=== PATIENT | female | born 1985 | race Caucasian/White ===

== ENCOUNTER 2018-01-06 09:16 | Outpatient (CLI) | payer MEDICARE, OTHER ==
--- NOTE | 2018-01-06 10:34 | GI Initial Consult Note ---
History of Present Illness General Date patient seen: Jan 06, 2018 Time patient seen: 10:25 Referring physician: DOLLY Reason for Consultation: N/V Present Illness HPI 33 year old female patient referred by Dr. Ryder for persistent vomiting after PO intake x 1 months. In addition, the patient presents with severe epigastric pain after ingesting proteins and thus has been on a strict vegetarian diet. She states she has lost about 10 lbs the past month due to her vomiting. Originally was 305 lbs. Took Zantac with no relief. Occasional diarrhea at times. Denies any recent abx use. No history of endoscopy / colonoscopy. No signs of abuse or neglect. Patient is not fall risk. Home Meds Reported Medications Sumatriptan Succinate (SUMATRIPTAN SUCCINATE) 100 Mg Tablet, 100 MG PO, TAB 01/06/18 Alprazolam* (XANAX*) 1 Mg Tablet, 1 TAB ORAL, TAB 0 Refills 01/06/18 Topiramate* (TOPAMAX*) 25 Mg Tablet, 50 MG ORAL DAILY, #30 TAB 0 Refills 01/06/18 Ondansetron* (ZOFRAN*) 4 Mg Tablet, 4 MG ORAL Q6H PRN, TAB 01/06/18 Famotidine (FAMOTIDINE) 20 Mg Tablet, 20 MG ORAL DAILY, #30 TAB 0 Refills 01/06/18 Duloxetine Hcl* (CYMBALTA*) 60 Mg Capsule.dr, 60 MG ORAL DAILY, CAP 01/06/18 Ibuprofen* (MOTRIN*) 600 Mg Tablet, 600 MG ORAL FOUR TIMES A DAY, #30 TAB 0 Refills 01/06/18 Meloxicam* (MELOXICAM*) 15 Mg Tablet, 15 MG PO DAILY, TAB 01/06/18 Canagliflozin (INVOKANA) 300 Mg Tablet, 300 MG PO, TAB 01/06/18 Med list reviewed/reconciled: Yes Allergies: Coded Allergies: Aspirin (Unverified Allergy, Severe, 01/06/18) Betadine (Unverified Allergy, Severe, 01/06/18) Codeine (Unverified Allergy, Severe, 01/06/18) Iodine (Unverified Allergy, Severe, 01/06/18) Patient History History Provided By: Patient PMH Narrative Depression DM s/p fall with knee brace Past Surgical History: Cholecystectomy 2012 Gastric sleeve 2014 Foot surgery Spine surgery 2017 Pertinent Family History: none Social History: Denies: smoking, alcohol use, drug use, other Review of Systems All Other Systems: negative except mentioned in HPI Physical Exam T 98.2 BP 108/60 P 65 98 RA WT 166.1 lbs (originally 305 lbs) Sp02 EP Interpretation: reviewed, normal General Appearance: well appearing, no apparent distress, alert Head: normocephalic EENT: PERRL/EOMI, normal ENT inspection Neck: supple Respiratory: normal breath sounds, no respiratory distress Cardiovascular: normal rate Gastrointestinal: normal inspection, non tender, soft, normal bowel sounds, non -distended Rectal: deferred Genitourinary: no CVA tenderness Musculoskeletal: normal inspection, back normal Neurologic: normal inspection, alert, oriented x3, responsive Psychiatric: normal inspection, judgement/insight normal, memory normal Skin: normal inspection, normal color, no rash, warm/dry, palpation normal, well hydrated Lymphatic: normal inspection, no adenopathy GI: Plan Problems: (1) Depression (2) Diabetes (3) Status post fall (4) Diarrhea (5) GERD (gastroesophageal reflux disease) (6) N&V (nausea and vomiting) Plan dc melaxicam EGD scheduled 01/12/18. - NPO @ [place] day prior to procedure. Seen with Dr. Temple. Thank you for this patient referral. Liz Corona N.P. Jan 06, 2018 10:34
[2018-01-06] MEDS ORDERED: SUMATRIPTAN SU100 MG PO (10:38)
[2018-01-06] MEDS ORDERED: INVOKANA300 MG PO (10:38)
[2018-01-06] MEDS ORDERED: IBUPROFEN600 MG ORAL (10:38)
[2018-01-06] MEDS ORDERED: ZOFRAN4 M3 ORAL (10:38)
[2018-01-06] MEDS ORDERED: MELOXICAM15 MG PO (10:38)
[2018-01-06] MEDS ORDERED: XANAX1 MG ORAL (10:38)
[2018-01-06] MEDS ORDERED: FAMOTIDINE20 MG ORAL (10:38)
[2018-01-06] MEDS ORDERED: CYMBALTA60 MG ORAL (10:38)
[2018-01-06] MEDS ORDERED: TOPIRAMATE25 MG ORAL (10:38)
[2018-01-06 14:57] VITALS: BP 108/60
== END 2018-01-06 09:50 | disposition home or self-care (01) ==
LOC: PAN 09:16
DX: R11.10 Vomiting, unspecified (principal); R10.13 Epigastric pain; Z88.6 Allergy status to analgesic agent; F32.9 Major depressive disorder, single episode, unspecified; E11.9 Type 2 diabetes mellitus without complications; Z90.49 Acquired absence of other specified parts of digestive tract; Z98.84 Bariatric surgery status; K21.9 Gastro-esophageal reflux disease without esophagitis; R19.7 Diarrhea, unspecified
CPT/HCPCS: 99201

== ENCOUNTER 2018-01-12 07:19 | Day surgery (SDC) | payer MEDICARE, OTHER ==
[2018-01-12] VITALS (8 sets, daily range): BP systolic 118–142; BP diastolic 65–74
[~2018-01-12] VITALS: Ht 152.4 cm; Wt 73.5 kg
[~2018-01-12 07:19] MED LIST: CYMBALTA60 MG ORAL; FAMOTIDINE20 MG ORAL; IBUPROFEN600 MG ORAL; INVOKANA300 MG PO; MELOXICAM15 MG PO; SUMATRIPTAN SU100 MG PO; TOPIRAMATE25 MG ORAL; XANAX1 MG ORAL; ZOFRAN4 M3 ORAL
[2018-01-12] MEDS ORDERED: LYRICA50 MG ORAL (08:13)
[2018-01-12] MEDS ORDERED: BUPROPION XL300 M1 PO (08:13)
--- NOTE | 2018-01-12 08:54 | Anethesia Preoperative Eval ---
Anesthesia Pre-op PMH/ROS General Date of Evaluation: Jan 12, 2018 Time of Evaluation: 09:46 Anesthesiologist: Trey ASA Score: ASA 3 Mallampati Score Class I : Soft palate, uvula, fauces, pillars visible Class II: Soft palate, uvula, fauces visible Class III: Soft palate, base of uvula visible Class IV: Only hard plate visible Mallampati Classification: Class II Surgeon: Windy Diagnosis: Abd Pain Surgical Procedure: EGD Anesthesia History: none Family History: no anesthesia problems Allergies: Coded Allergies: IODINE (Verified Allergy, Severe, hives, blisters, 01/12/18) POVIDONE-IODINE (Unverified Allergy, Severe, hives, blisters, 01/12/18) SOAP (Verified Allergy, Severe, hives, blisters, 01/12/18) ASPIRIN (Verified Allergy, Intermediate, hives, 01/12/18) CODEINE (Verified Allergy, Intermediate, hives, 01/12/18) Medications: see eMAR Past Medical History Cardiovascular: Reports: HTN Gastrointestinal/Genitourinary: Reports: GERD Neurologic/Psychiatric: Reports: depression/anxiety Endocrine: Reports: DM PSxH Narrative: Spione SX X7, Cholecystectomy, Gastric Sleeve Anesthesia Pre-op Phys. Exam Physician Exam Last Vital Signs Date Time Temp Pulse Resp B/P (MAP) Pulse Ox O2 Delivery O2 Flow Rate FiO2 01/12/18 08:06 98.2 54 18 118/66 99 Room Air 98.2 Constitutional: NAD Neurologic: CN 2-12 intact Cardiovascular: RRR Respiratory: CTA Gastrointestinal: S/NT/ND Airway Exam Mallampati Classification ASA 3 Mallampati Score: Class II MO: full ROM: full Teeth: intact Anesthesia Pre-op A/P Labs Urine Test Test 01/12/18 07:30 Urine HCG, Qualitative Negative (NEGATIVE) Risk Assessment & Plan Assessment: ASA 3 Plan: GA Status Change Before Surgery: Perry Butler MD Jan 12, 2018 08:54
--- NOTE | 2018-01-12 08:57 | Short Stay Surgery H&P ---
History of Present Illness History of Present Illness Chief Complaint see recent consult note HPI Abe Lin is a 33 year old female who was admitted on for GERD Patient History Allergies: Coded Allergies: IODINE (Verified Allergy, Severe, hives, blisters, 01/12/18) POVIDONE-IODINE (Unverified Allergy, Severe, hives, blisters, 01/12/18) SOAP (Verified Allergy, Severe, hives, blisters, 01/12/18) ASPIRIN (Verified Allergy, Intermediate, hives, 01/12/18) CODEINE (Verified Allergy, Intermediate, hives, 01/12/18) Medication History Scheduled Bupropion HCl (Bupropion Xl), 300 MG PO DAILY, (Reported) Duloxetine Hcl* (Cymbalta*), 60 MG ORAL DAILY, (Reported) Famotidine (Famotidine), 20 MG ORAL DAILY, (Reported) Pregabalin (Lyrica), 50 MG ORAL BID, (Reported) Sumatriptan Succinate (Sumatriptan Succinate), 100 MG PO NEEDED, (Reported) Topiramate* (Topamax*), 50 MG ORAL BID, (Reported) Scheduled PRN Ondansetron* (Zofran*), 4 MG ORAL Q6H PRN, (Reported) Miscellaneous Medications Alprazolam* (Xanax*), 1 TAB ORAL, (Reported) Canagliflozin (Invokana), 300 MG PO, (Reported) Discontinued Medications Ibuprofen* (Motrin*), 600 MG ORAL FOUR TIMES A DAY, (Reported) Discontinued Reason: Pt stopped taking med Meloxicam* (Meloxicam*), 15 MG PO DAILY, (Reported) Discontinued Reason: Pt stopped taking med Physical Exam Vital Signs Last Vital Signs Date Time Temp Pulse Resp B/P (MAP) Pulse Ox O2 Delivery O2 Flow Rate FiO2 01/12/18 08:06 98.2 54 18 118/66 99 Room Air 98.2 Labs Laboratory Tests Test 01/12/18 07:30 Urine HCG, Qualitative Negative (NEGATIVE) Plan Attestation Are the patient's medical conditions optimized for surgery? RAVINDRA GUSMAN Jan 12, 2018 08:57
--- NOTE | 2018-01-12 08:57 | Pre-Procedure Note/Attestation ---
Pre-Procedure Note/Attestation Complete Prior to Procedure Planned Procedure: not applicable Procedure Narrative: egd Indications for Procedure Pre-Operative Diagnosis: gerd Attestation I attest that I discussed the nature of the procedure; its benefits; risks and complications; and alternatives (and the risks and benefits of such alternatives ), prior to the procedure, with the patient (or the patient's legal inside technical sales representative). I attest that, if there was a reasonable possibility of needing a blood transfusion, the patient (or the patient's legal inside technical sales representative) was given the [facility] of Health Services standardized written summary, pursuant to the [place] Blood Safety Act ([place] Health and Safety Code # 1645, as amended). I attest that I re-evaluated the patient just prior to the surgery and that there has been no change in the patient's H&P, except as documented below: RAVINDRA GUSMAN Jan 12, 2018 08:57
[2018-01-12] MEDS ORDERED: Propofol 200mg/20ml IV ONE (09:00)
[2018-01-12] MEDS ORDERED: LR 1000ml ONE (09:00)
[2018-01-12] MEDS ORDERED: Lidocaine 1% MPF 10mg/ml 5ml ONE (09:00)
[2018-01-12] MEDS ORDERED: Midazolam 2mg/2ml Inj ONE (09:00)
[2018-01-12] MEDS ORDERED: LR 1000ml 1,000 ML IVLG SCH (09:14)
[2018-01-12] MEDS ORDERED: Midazolam 2mg/2ml Inj IVP PRN (09:15)
[2018-01-12] MEDS ORDERED: DiphenhydrAMINE 50mg/ml Inj IVP PRN (09:15)
[2018-01-12] MEDS ORDERED: Atropine Inj 1mg/10ml Syr IV PRN (09:15)
[2018-01-12] MEDS ORDERED: LORazepam Inj 2mg/ml 1ml IV PRN (09:15)
[2018-01-12] MEDS ORDERED: Labetalol 5mg/ml 20ml vial IV PRN (09:15)
[2018-01-12] MEDS ORDERED: fentaNYL 100 mcg/2 mL IV PRN (09:15)
--- NOTE | 2018-01-12 09:20 | Immediate Post-Op Evaluation ---
Immediate Post-Op Evalulation Immediate Post-Op Evalulation Procedure: EGD Date of Evaluation: Jan 12, 2018 Time of Evaluation: 09:47 IV Fluids: 600 LR Blood Products: 0 Estimated Blood Loss: 2 Urinary Output: 0 Blood Pressure Systolic: 142 Blood Pressure Diastolic: 74 Pulse Rate: 61 Respiratory Rate: 16 O2 Sat by Pulse Oximetry: 100 Temperature (Fahrenheit): 97.4 Pain Score (1-10): 2 Nausea: No Vomiting: No Complications 0 Patient Status: awake, reacts, patent, none Hydration Status: adequate Perry Yang MD Jan 12, 2018 09:20
--- NOTE | 2018-01-12 09:20 | 48 Hour Post Anesthesia Eval ---
Post Anesthesia Evaluation Procedure: EGD Date of Evaluation: Jan 12, 2018 Time of Evaluation: 09:47 Blood Pressure Systolic: 143 0: 76 Pulse Rate: 62 Respiratory Rate: 18 Temperature (Fahrenheit): 98.3 O2 Sat by Pulse Oximetry: 100 Airway: patent Nausea: No Vomiting: No Pain Intensity: 2 Hydration Status: adequate Cardiopulmonary Status: Stable Mental Status/LOC: patient returned to baseline Follow-up Care/Observations: 0 Post-Anesthesia Complications: 0 Follow-up care needed: ready to discharge Perry Yang MD Jan 12, 2018 09:20
--- NOTE | 2018-01-12 17:00 | Procedure Note ---
DATE OF PROCEDURE: 01/12/2018 SURGEON: Tanner Temple M.D. REFERRING PHYSICIAN: Mauricio Ryder M.D. PROCEDURE: Upper endoscopy with biopsy. ANESTHESIOLOGIST: Brijesh Daly . INSTRUMENT: Olympus adult flexible upper endoscope. INDICATION: Chronic GERD. The procedure, risks, benefits, and possible consequences, including hemorrhage, aspiration, perforation and infection, and alternative treatments, were explained to the patient/legal guardian by Dr. Tanner Temple and the patient/legal guardian understood and accepted these risks. DESCRIPTION OF PROCEDURE: After informed consent was obtained and the patient was adequately sedated, the Olympus upper endoscope was advanced from mouth into the second portion of the duodenum and retroflexion was performed in the stomach. The patient had prior history of gastric sleeve surgery, but at this time, almost the sleeve is relatively open. The patient had evidence of distal esophageal ring with ulcerative esophagitis, status post biopsy. Just below the GE junction, there was an inflammatory-looking area, which was biopsied and gastric pouch. The patient had evidence of hiatal hernia. In the stomach, there was diffuse gastritis. Random biopsy from antrum was obtained to rule out H. pylori infection. The patient tolerated the procedure well without any complication. SUMMARY OF FINDINGS: 1. Ulcerative esophagitis. 2. Distal esophageal ring. 3. Hiatal hernia. 4. Prior history of gastric sleeve surgery. 5. Gastritis with biopsy. RECOMMENDATIONS: 1. Follow up biopsy results. 2. We will recommend starting the patient on PPI daily. I want to thank Dr. Ryder for this kind referral. Tanner Temple M.D. DR: ZACHARY JOB#: [id number] CC: Mauricio Ryder M.D.; Fax#: [phone]
--- NOTE | 2018-01-12 18:47 | Cardiology Report ---
APPROVED REPORT EKG Measurement Heart [id number] MI [id number] Sinus bradycardia Otherwise normal ECG
== END 2018-01-12 10:45 | disposition home or self-care (01) ==
LOC: GAS 07:19
DX: K22.10 Ulcer of esophagus without bleeding (principal); K21.9 Gastro-esophageal reflux disease without esophagitis; K44.9 Diaphragmatic hernia without obstruction or gangrene; K22.2 Esophageal obstruction; Z98.84 Bariatric surgery status; K29.70 Gastritis, unspecified, without bleeding; R00.1 Bradycardia, unspecified; I10 Essential (primary) hypertension; F32.9 Major depressive disorder, single episode, unspecified; F41.9 Anxiety disorder, unspecified; E11.9 Type 2 diabetes mellitus without complications; Z90.49 Acquired absence of other specified parts of digestive tract; Z88.6 Allergy status to analgesic agent; Z88.8 Allergy status to other drugs, medicaments and biological substances
CPT/HCPCS: 81025; 82962; 93005; 94003; 94150; J2250

== ENCOUNTER 2018-03-10 09:28 | Outpatient (CLI) | payer MEDICARE, OTHER ==
[~2018-03-10 09:28] MED LIST changes: +BUPROPION XL300 M1 PO; +LYRICA50 MG ORAL
--- NOTE | 2018-03-10 10:02 | GI Progress Note ---
Assessment/Plan Problems: (1) Ulcerative esophagitis ICD Codes: K22.10 - Ulcer of esophagus without bleeding SNOMED: 190252571 (2) H. pylori infection ICD Codes: A04.8 - Other specified bacterial intestinal infections SNOMED: 883434193 (3) Hiatal hernia ICD Codes: K44.9 - Diaphragmatic hernia without obstruction or gangrene SNOMED: 14797076 Status: stable Status Narrative Seen with Dr. Temple. Assessment/Plan SUMMARY OF FINDINGS reviewed with patient: 1. Ulcerative esophagitis. 2. Distal esophageal ring. 3. Hiatal hernia. 4. Prior history of gastric sleeve surgery. 5. Gastritis with biopsy. RECOMMENDATIONS: 1. Follow up biopsy results. >> positive for H. Pylori - Amoxicillin 1g BID - Biaxin 500mb BID - Omeprazole 40mg x 2 weeks followed by Omeprazole 40mg PO daily x 6 weeks RTC x 3 month for repeat Breath Test 2. CT AP, labs ordered >> CBC, CMP, amylase/lipase RTC after labs/imaging studies The patient was seen and examined at bedside and all new and available data was reviewed in the patients chart. I agree with the above findings, impression and plan. (Patient seen earlier today. Signature stamp does not reflect patient encounter time.). - Tanner Temple MD Subjective Subjective weight loss abdominal pain painful swallowing Objective T 98.1 BP 124/68 P 74 99 RA General Appearance: WD/WN, no apparent distress, alert Cardiovascular: normal rate Respiratory/Chest: normal breath sounds, no respiratory distress Abdominal Exam: normal bowel sounds, non tender, soft Extremities: normal range of motion, non-tender Frantz Corona NP March 10, 2018 10:02
[2018-03-10 14:20] VITALS: BP 124/68
== END 2018-03-10 10:10 | disposition home or self-care (01) ==
LOC: PAN 09:28
DX: K22.10 Ulcer of esophagus without bleeding (principal); A04.8 Other specified bacterial intestinal infections; K44.9 Diaphragmatic hernia without obstruction or gangrene; Z98.84 Bariatric surgery status; K29.70 Gastritis, unspecified, without bleeding
CPT/HCPCS: 99212

== ENCOUNTER 2018-03-10 10:20 | Outpatient (CLI) | payer MEDICARE, OTHER ==
[2018-03-10 11:37] LABS: ALANINE AMINOTRANSFERASE 15 U/L (12-78); ALBUMIN 3.9 G/DL (3.4-5.0); ALKALINE PHOSPHATASE 90 U/L (46-116); AMYLASE 42 U/L (25-115); ANION GAP 8 mmol/L (5-15); ASPARTATE AMINO TRANSFERASE 20 U/L (15-37); BILIRUBIN,TOTAL 0.6 MG/DL (0.2-1.0); BLOOD UREA NITROGEN 14 mg/dL (7-18); CALCIUM 9.2 MG/DL (8.5-10.1); CARBON DIOXIDE 28 MMOL/L (21-32); CHLORIDE 105 MMOL/L (98-107); CREATININE 0.7 MG/DL (0.55-1.30); POTASSIUM 3.9 MMOL/L (3.5-5.1); SODIUM 141 MMOL/L (136-145)
[2018-03-10 11:40] LABS: BASOPHILS % (AUTO) 1.3 % (0.0-2.0); EOSINOPHILS % (AUTO) 0.6 % (0.0-3.0); HEMATOCRIT 37.4 % (37.0-47.0); HEMOGLOBIN 11.7 G/DL (12.0-16.0); LYMPHOCYTES % (AUTO) 15.8 % (20.0-45.0); MEAN CORPUSCULAR VOLUME 95 FL (80-99); MONOCYTES % (AUTO) 4.4 % (1.0-10.0); NEUTROPHILS % (AUTO) 77.9 % (45.0-75.0); PLATELET COUNT 315 K/UL (150-450); RED BLOOD COUNT 3.93 M/UL (4.20-5.40); RED CELL DISTRIBUTION WIDTH 14.1 % (11.6-14.8); WHITE BLOOD COUNT 4.9 K/UL (4.8-10.8)
--- NOTE | 2018-03-10 14:32 | Diagnostic Imaging Report ---
Indication: Abdominal pain Technique: Continuous helical transaxial imaging of the abdomen and pelvis was obtained from the lung bases to the pubic symphysis. No intravenous contrast was administered. Coronal 2-D reformats were also obtained. Automatic Exposure Control was utilized. Total Dose length Product (DLP): 715.[address] Dose Index Volume (CTDIvol): 14.79 mGy Comparison: none Findings: There is a punctate nonobstructive stone measuring 2 mm in the midpole the right kidney. There is no hydronephrosis demonstrated. Cholecystectomy noted. Lung bases are clear. Small hiatal hernia is present. Accessory spleen noted. No evidence of bowel obstruction. Urinary bladder is unremarkable in appearance. Uterus noted. Normal appendix demonstrated. The patient has had lower lumbar surgery with the instrumentation at L4-5 for posterior fusion as well as laminectomy. Spinal stimulation wires enter the upper lumbar spine and extends cranially toward the thoracic spine. IMPRESSION: Small nonobstructive stone in the right kidney. Hiatal hernia Status post cholecystectomy. Lower lumbar fusion and laminectomy. Normal appendix The CT scanner at [facility] is accredited by the [employer] and the scans are performed using dose optimization techniques as appropriate to a performed exam including Automatic Exposure control.
== END 2018-03-10 12:20 | disposition home or self-care (01) ==
LOC: LAB 10:20
DX: R10.9 Unspecified abdominal pain (principal)
CPT/HCPCS: 36415; 74176; 80053; 82150; 83690; 85025

== ENCOUNTER 2018-03-12 13:03 | Outpatient (CLI) | payer MEDICARE, OTHER ==
[2018-03-12 13:10] VITALS: BP 122/71
--- NOTE | 2018-03-12 15:44 | GI Progress Note ---
Assessment/Plan Problems: (1) Diarrhea ICD Codes: R19.7 - Diarrhea, unspecified SNOMED: 16745686 (2) Hiatal hernia ICD Codes: K44.9 - Diaphragmatic hernia without obstruction or gangrene SNOMED: 50726677 (3) Ulcerative esophagitis ICD Codes: K22.10 - Ulcer of esophagus without bleeding SNOMED: 925260908 (4) GERD (gastroesophageal reflux disease) ICD Codes: K21.9 - Gastro-esophageal reflux disease without esophagitis SNOMED: 283312903 Status: stable Status Narrative Seen with Dr. Temple. Assessment/Plan CT AP reviewed negative labs reviewed cont PPI trial Reglan RTC 2 weeks The patient was seen and examined at bedside and all new and available data was reviewed in the patients chart. I agree with the above findings, impression and plan. (Patient seen earlier today. Signature stamp does not reflect patient encounter time.). - Tanner Temple MD Subjective Subjective epigastric pain, worse after food diarrhea with solid food. liquid BM with protein shake and vegetables irregular BM Objective Last 24 Hour Vital Signs Date Time Temp Pulse Resp B/P (MAP) Pulse Ox O2 Delivery O2 Flow Rate FiO2 03/12/18 13:10 97.8 64 16 122/71 97.8 General Appearance: WD/WN, no apparent distress, alert Cardiovascular: normal rate Respiratory/Chest: normal breath sounds, no respiratory distress Abdominal Exam: normal bowel sounds, non tender, soft Extremities: normal range of motion, non-tender Frantz Corona PLANT CONTROL OPERATOR March 12, 2018 15:44
== END 2018-03-12 13:35 | disposition home or self-care (01) ==
LOC: PAN 13:03
DX: R19.7 Diarrhea, unspecified (principal); K44.9 Diaphragmatic hernia without obstruction or gangrene; K22.10 Ulcer of esophagus without bleeding; K21.9 Gastro-esophageal reflux disease without esophagitis
CPT/HCPCS: 99212

== ENCOUNTER 2018-03-19 12:49 | Outpatient (CLI) | payer MEDICARE, OTHER ==
--- NOTE | 2018-03-19 16:04 | GI Progress Note ---
Assessment/Plan Problems: (1) Ulcerative esophagitis ICD Codes: K22.10 - Ulcer of esophagus without bleeding SNOMED: 597320078 (2) GERD (gastroesophageal reflux disease) ICD Codes: K21.9 - Gastro-esophageal reflux disease without esophagitis SNOMED: 547850655 (3) Hiatal hernia ICD Codes: K44.9 - Diaphragmatic hernia without obstruction or gangrene SNOMED: 16874847 (4) H. pylori infection ICD Codes: A04.8 - Other specified bacterial intestinal infections SNOMED: 117349647 (5) N&V (nausea and vomiting) ICD Codes: R11.2 - Nausea with vomiting, unspecified SNOMED: 38866163 Status: stable Status Narrative Seen with Dr. Temple. Assessment/Plan increase reglan to 7.5mg referred to urologist RTC prn Subjective Subjective abdominal pain GERD episodes of vomiting, on reglan Objective T 98.1 BP 118/66 P 63 97 RA General Appearance: WD/WN, no apparent distress, alert Cardiovascular: normal rate Respiratory/Chest: normal breath sounds, no respiratory distress Abdominal Exam: normal bowel sounds, non tender, soft Extremities: normal range of motion, non-tender Frantz Corona NP Mar 19, 2018 16:04
== END 2018-03-19 13:22 | disposition home or self-care (01) ==
LOC: PAN 12:49
DX: K22.10 Ulcer of esophagus without bleeding (principal); K21.9 Gastro-esophageal reflux disease without esophagitis; K44.9 Diaphragmatic hernia without obstruction or gangrene; A04.8 Other specified bacterial intestinal infections; R11.2 Nausea with vomiting, unspecified; B96.81 Helicobacter pylori [H. pylori] as the cause of diseases classified elsewhere
CPT/HCPCS: 99211

== ENCOUNTER 2018-09-15 10:33 | Outpatient (CLI) | payer MEDICARE, OTHER ==
[2018-09-15] MEDS ORDERED: INVOKANA300 MG PO (10:49)
[2018-09-15] MEDS ORDERED: PROTONIX40 MG ORAL (10:49)
--- NOTE | 2018-09-15 11:35 | GI Initial Consult Note ---
History of Present Illness General Date patient seen: Sep 15, 2018 Time patient seen: 11:33 Referring physician: DOLLY Reason for Consultation: ABDOMINAL PAIN Present Illness HPI 33 year old female patient s/p EGD this January, hx of H. Pylori infection and esophagitis presents today with complaint of LUQ/LLQ abdominal pain, diarrhea, and nausea. Denies any unintentional weight loss or changes in dietary habits. No signs of abuse or neglect. Patient is not fall risk. Home Meds Reported Medications Canagliflozin (INVOKANA) 300 Mg Tablet, 300 MG PO DAILY, TAB 09/15/18 Pantoprazole* (PROTONIX*) 40 Mg Tablet.dr, 40 MG ORAL DAILY, TAB 09/15/18 Duloxetine Hcl* (CYMBALTA*) 60 Mg Capsule.dr, 60 MG ORAL DAILY, CAP 01/06/18 Discontinued Reported Medications Pregabalin (Lyrica) 50 Mg Capsule, 50 MG ORAL BID, CAP 01/12/18 Bupropion HCl (Bupropion Xl) 300 Mg Tab.er.24h, 300 MG PO DAILY, TAB 01/12/18 Sumatriptan Succinate (SUMATRIPTAN SUCCINATE) 100 Mg Tablet, 100 MG PO NEEDED , TAB 01/06/18 Alprazolam* (XANAX*) 1 Mg Tablet, 1 TAB ORAL, TAB 0 Refills 01/06/18 Topiramate* (TOPAMAX*) 25 Mg Tablet, 50 MG ORAL BID, #30 TAB 0 Refills 01/06/18 Ondansetron* (ZOFRAN*) 4 Mg Tablet, 4 MG ORAL Q6H PRN, TAB 01/06/18 Famotidine (FAMOTIDINE) 20 Mg Tablet, 20 MG ORAL DAILY, #30 TAB 0 Refills 01/06/18 Med list reviewed/reconciled: Yes Allergies: Coded Allergies: IODINE (Verified Allergy, Severe, hives, blisters, 01/12/18) POVIDONE-IODINE (Unverified Allergy, Severe, hives, blisters, 01/12/18) SOAP (Verified Allergy, Severe, hives, blisters, 01/12/18) ASPIRIN (Verified Allergy, Intermediate, hives, 01/12/18) CODEINE (Verified Allergy, Intermediate, hives, 01/12/18) Patient History History Provided By: Patient, Medical Record PMH Narrative Depression DM s/p fall with knee brace Past Surgical History: Cholecystectomy 2012 Gastric sleeve 2014 Foot surgery Spine surgery 2017 Pertinent Family History: none Social History: Denies: smoking, alcohol use, drug use, other Review of Systems All Other Systems: negative except mentioned in HPI Physical Exam T 98.2 BP 117/64 P 69 98 RA Sp02 EP Interpretation: reviewed, normal General Appearance: well appearing, no apparent distress, alert Head: normocephalic EENT: PERRL/EOMI, normal ENT inspection Neck: supple Respiratory: normal breath sounds, no respiratory distress Cardiovascular: normal rate Gastrointestinal: normal inspection, non tender, soft, normal bowel sounds, non -distended Rectal: deferred Genitourinary: no CVA tenderness Musculoskeletal: normal inspection, back normal Neurologic: normal inspection, alert, oriented x3, responsive Psychiatric: normal inspection, judgement/insight normal, memory normal Skin: normal inspection, normal color, no rash, warm/dry, palpation normal, well hydrated Lymphatic: normal inspection, no adenopathy GI: Plan Problems: (1) Depression (2) Hiatal hernia (3) GERD (gastroesophageal reflux disease) (4) H. pylori infection (5) Ulcerative esophagitis Plan EGD scheduled Sep 17. - NPO @ [place]. labs to be drawn day of procedure >> CBC, CMP, amylase/lipase. will follow with additional recommendations post procedure. Discussed with Dr. Temple. Thank you for this patient referral, we will follow. The patient was seen and examined at bedside and all new and available data was reviewed in the patients chart. I agree with the above findings, impression and plan. (Patient seen earlier today. Signature stamp does not reflect patient encounter time.). - MD [facility] GRINDER SET UP OPERATOR SURFACE Sep 15, 2018 11:35
[2018-09-15 16:12] VITALS: BP 117/64
== END 2018-09-15 11:03 | disposition home or self-care (01) ==
LOC: PAN 10:33
DX: K21.9 Gastro-esophageal reflux disease without esophagitis (principal); K44.9 Diaphragmatic hernia without obstruction or gangrene; K22.10 Ulcer of esophagus without bleeding; B96.81 Helicobacter pylori [H. pylori] as the cause of diseases classified elsewhere; F32.9 Major depressive disorder, single episode, unspecified; E11.9 Type 2 diabetes mellitus without complications; Z90.49 Acquired absence of other specified parts of digestive tract; Z98.84 Bariatric surgery status
CPT/HCPCS: 99212

== ENCOUNTER 2018-09-17 05:20 | Day surgery (SDC) | payer MEDICARE, OTHER ==
[2018-09-17] VITALS (10 sets, daily range): BP systolic 92–112; BP diastolic 47–71
[~2018-09-17] VITALS: Ht 152.4 cm; Wt 60.8 kg
[~2018-09-17 05:20] MED LIST changes: +PROTONIX40 MG ORAL
[2018-09-17 05:58] LABS: BASOPHILS % (AUTO) 1.4 % (0.0-2.0); EOSINOPHILS % (AUTO) 8.5 % (0.0-3.0); HEMATOCRIT 36.4 % (37.0-47.0); HEMOGLOBIN 11.9 G/DL (12.0-16.0); LYMPHOCYTES % (AUTO) 23.1 % (20.0-45.0); MEAN CORPUSCULAR VOLUME 91 FL (80-99); MONOCYTES % (AUTO) 6.5 % (1.0-10.0); NEUTROPHILS % (AUTO) 60.4 % (45.0-75.0); PLATELET COUNT 317 K/UL (150-450); RED BLOOD COUNT 3.99 M/UL (4.20-5.40); WHITE BLOOD COUNT 4.8 K/UL (4.8-10.8)
[2018-09-17] MEDS ORDERED: KLONOPIN0.5 MG ORAL (06:03)
[2018-09-17 06:14] LABS: ALANINE AMINOTRANSFERASE 13 U/L (12-78); ALBUMIN 3.5 G/DL (3.4-5.0); ALBUMIN/GLOBULIN RATIO 0.7 (1.0-2.7); ALKALINE PHOSPHATASE 89 U/L (46-116); AMYLASE 47 U/L (25-115); ANION GAP 9 mmol/L (5-15); ASPARTATE AMINO TRANSFERASE 20 U/L (15-37); BILIRUBIN,TOTAL 0.7 MG/DL (0.2-1.0); BLOOD UREA NITROGEN 15 mg/dL (7-18); CALCIUM 8.7 MG/DL (8.5-10.1); CARBON DIOXIDE 25 MMOL/L (21-32); CHLORIDE 104 MMOL/L (98-107); CREATININE 0.6 MG/DL (0.55-1.30); POTASSIUM 4.1 MMOL/L (3.5-5.1); SODIUM 138 MMOL/L (136-145)
[2018-09-17] MEDS ORDERED: Midazolam 2mg/2ml Inj ONE (06:57)
[2018-09-17] MEDS ORDERED: Propofol 200mg/20ml IV ONE (07:00)
[2018-09-17] MEDS ORDERED: Lidocaine 1% MPF 10mg/ml 5ml ONE (07:00)
--- NOTE | 2018-09-17 07:09 | Pre-Procedure Note/Attestation ---
Pre-Procedure Note/Attestation Complete Prior to Procedure Planned Procedure: not applicable Procedure Narrative: egd Indications for Procedure Pre-Operative Diagnosis: abd pain, Anemia Attestation I attest that I discussed the nature of the procedure; its benefits; risks and complications; and alternatives (and the risks and benefits of such alternatives ), prior to the procedure, with the patient (or the patient's legal insurance claim representative). I attest that, if there was a reasonable possibility of needing a blood transfusion, the patient (or the patient's legal insurance claim representative) was given the [facility] of Health Services standardized written summary, pursuant to the [place] Blood Safety Act ([place] Health and Safety Code # 1645, as amended). I attest that I re-evaluated the patient just prior to the surgery and that there has been no change in the patient's H&P, except as documented below: Tanner Temple MD Sep 17, 2018 07:09
--- NOTE | 2018-09-17 07:09 | Short Stay Surgery H&P ---
History of Present Illness History of Present Illness Chief Complaint see recent office note HPI Kimmy Lin is a 33 year old female who was admitted on for GERD Patient History Allergies: Coded Allergies: IODINE (Verified Allergy, Severe, hives, blisters, 01/12/18) POVIDONE-IODINE (Unverified Allergy, Severe, hives, blisters, 01/12/18) SOAP (Verified Allergy, Severe, hives, blisters, 01/12/18) ASPIRIN (Verified Allergy, Intermediate, hives, 01/12/18) CODEINE (Verified Allergy, Intermediate, hives, 01/12/18) Medication History Scheduled Clonazepam* (Klonopin*), 0.5 MG ORAL TID, (Reported) Duloxetine Hcl* (Cymbalta*), 60 MG ORAL DAILY, (Reported) Pantoprazole* (Protonix*), 40 MG ORAL DAILY, (Reported) Discontinued Medications Alprazolam* (Xanax*), 1 TAB ORAL, (Reported) Discontinued Reason: discontinued med Bupropion HCl (Bupropion Xl), 300 MG PO DAILY, (Reported) Discontinued Reason: discontinued med Canagliflozin (Invokana), 300 MG PO DAILY, (Reported) Discontinued Reason: Pt stopped taking med Famotidine (Famotidine), 20 MG ORAL DAILY, (Reported) Discontinued Reason: Pt stopped taking med Ondansetron* (Zofran*), 4 MG ORAL Q6H PRN, (Reported) Discontinued Reason: Pt stopped taking med Pregabalin (Lyrica), 50 MG ORAL BID, (Reported) Discontinued Reason: discontinued med Sumatriptan Succinate (Sumatriptan Succinate), 100 MG PO NEEDED, (Reported) Discontinued Reason: discontinued med Topiramate* (Topamax*), 50 MG ORAL BID, (Reported) Discontinued Reason: MD discontinued med Physical Exam Vital Signs Last Vital Signs Date Time Temp Pulse Resp B/P (MAP) Pulse Ox O2 Delivery O2 Flow Rate FiO2 09/17/18 06:06 Room Air 09/17/18 05:58 98.9 59 18 108/65 99 Labs Laboratory Tests Test 09/17/18 05:40 White Blood Count 4.8 K/UL (4.8-10.8) Red Blood Count 3.99 M/UL (4.20-5.40) L Hemoglobin 11.9 G/DL (12.0-16.0) L Hematocrit 36.4 % (37.0-47.0) L Mean Corpuscular Volume 91 FL (80-99) Mean Corpuscular Hemoglobin 29.9 PG (27.0-31.0) Mean Corpuscular Hemoglobin Concent 32.8 G/DL (32.0-36.0) Red Cell Distribution Width 12.0 % (11.6-14.8) Platelet Count 317 K/UL (150-450) Mean Platelet Volume 6.3 FL (6.5-10.1) L Neutrophils (%) (Auto) 60.4 % (45.0-75.0) Lymphocytes (%) (Auto) 23.1 % (20.0-45.0) Monocytes (%) (Auto) 6.5 % (1.0-10.0) Eosinophils (%) (Auto) 8.5 % (0.0-3.0) H Basophils (%) (Auto) 1.4 % (0.0-2.0) Sodium Level 138 MMOL/L (136-145) Potassium Level 4.1 MMOL/L (3.5-5.1) Chloride Level 104 MMOL/L (98-107) Carbon Dioxide Level 25 MMOL/L (21-32) Anion Gap 9 mmol/L (5-15) Blood Urea Nitrogen 15 mg/dL (7-18) Creatinine 0.6 MG/DL (0.55-1.30) Estimat Glomerular Filtration Rate > 60 mL/min (>60) Glucose Level 83 MG/DL (74-106) Calcium Level 8.7 MG/DL (8.5-10.1) Total Bilirubin 0.7 MG/DL (0.2-1.0) Aspartate Amino Transf (AST/SGOT) 20 U/L (15-37) Alanine Aminotransferase (ALT/SGPT) 13 U/L (12-78) Alkaline Phosphatase 89 U/L (46-116) Total Protein 8.2 G/DL (6.4-8.2) Albumin 3.5 G/DL (3.4-5.0) Globulin 4.7 g/dL Albumin/Globulin Ratio 0.7 (1.0-2.7) L Amylase Level 47 U/L (25-115) Lipase 144 U/L (73-393) Human Chorionic Gonadotropin, Qual Negative (NEGATIVE) Plan Attestation Are the patient's medical conditions optimized for surgery? Tanner Temple MD Sep 17, 2018 07:09
--- NOTE | 2018-09-17 07:16 | Endoscopy Procedure Note ---
Endoscopy Procedure Note General Indication for Procedure: anemia, abd pain Procedures Performed: EGD Operative Findings/Diagnosis: gastritis Specimen: yes Pt Tolerated Procedure Well: Yes Estimated Blood Loss: none Anesthesia Anesthesiologist: see chart Anesthesia: MAC Inserted Devices Implant(s) used?: No GI Core Measures 50 yrs or older w/o bx or poly: Not Applicable 10yrs. F/U not recommended: Not Applicable Tanner Temple MD Sep 17, 2018 07:16
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
--- NOTE | 2018-09-17 07:39 | Immediate Post-Op Evaluation ---
Immediate Post-Op Evalulation Immediate Post-Op Evalulation Procedure: EGD Date of Evaluation: Sep 17, 2018 Time of Evaluation: 07:36 IV Fluids: NSS 500ml Blood Products: 0 Estimated Blood Loss: 0 Urinary Output: 0 Blood Pressure Systolic: 100 Blood Pressure Diastolic: 57 Pulse Rate: 64 Respiratory Rate: 20 O2 Sat by Pulse Oximetry: 100 Temperature (Fahrenheit): 98.1 Pain Score (1-10): 0 Nausea: No Vomiting: No Complications none Patient Status: awake, reacts, patent Hydration Status: adequate Given Within 1 Hr of Incision: Juliana Rizo CRNA Sep 17, 2018 07:39
--- NOTE | 2018-09-17 08:57 | 48 Hour Post Anesthesia Eval ---
Post Anesthesia Evaluation Procedure: EGD Date of Evaluation: Sep 17, 2018 Time of Evaluation: 08:56 Blood Pressure Systolic: 92 0: 47 Pulse Rate: 58 Respiratory Rate: 14 Temperature (Fahrenheit): 98.7 O2 Sat by Pulse Oximetry: 98 Airway: patent Nausea: No Vomiting: No Hydration Status: adequate Cardiopulmonary Status: WNL Mental Status/LOC: patient returned to baseline Post-Anesthesia Complications: none Follow-up care needed: patient intructions given Juliana Gibbs CRNA Sep 17, 2018 08:57
--- NOTE | 2018-09-17 16:00 | Procedure Note ---
DATE OF PROCEDURE: 09/17/2018 SURGEON: Tanner Temple M.D. PROCEDURE: Upper endoscopy with biopsy. ANESTHESIA: Per anesthesiologist. See anesthesia sheet. INSTRUMENT: Olympus adult flexible upper endoscope. INDICATION: Abdominal pain, anemia, and history of esophagitis. The procedure, risks, benefits, and possible consequences, including hemorrhage, aspiration, perforation and infection, and alternative treatments, were explained to the patient/legal guardian by Dr. Tanner Temple and the patient/legal guardian understood and accepted these risks. DESCRIPTION OF PROCEDURE: After informed consent was obtained and the patient was adequately sedated, Olympus upper endoscope was advanced through the esophagus. The patient has history of sleeve gastrectomy. There was evidence of hiatal hernia. Mild diffuse gastritis. Random biopsy was obtained from the gastric antrum. The patient has no evidence of any esophagitis at this time. The rest of the examination grossly looked within normal limits. SUMMARY FINDINGS: 1. No evidence of esophagitis. 2. Hiatal hernia. 3. Gastritis, status post biopsy. RECOMMENDATIONS: Follow up biopsy results and treat accordingly. Tanner Temple M.D. DR: WM JOB#: [id number] CC:
== END 2018-09-17 08:45 | disposition home or self-care (01) ==
LOC: GAS 05:20
DX: K29.50 Unspecified chronic gastritis without bleeding (principal); B96.81 Helicobacter pylori [H. pylori] as the cause of diseases classified elsewhere; D64.9 Anemia, unspecified; K44.9 Diaphragmatic hernia without obstruction or gangrene; K21.9 Gastro-esophageal reflux disease without esophagitis; Z88.6 Allergy status to analgesic agent; Z91.041 Radiographic dye allergy status; F41.9 Anxiety disorder, unspecified; F32.9 Major depressive disorder, single episode, unspecified; E11.9 Type 2 diabetes mellitus without complications; Z98.1 Arthrodesis status
CPT/HCPCS: 36415; 43239; 80053; 82150; 82962; 83690; 84703; 85025; J2250; J2704; 94003; 94150

== ENCOUNTER 2018-09-28 12:56 | Outpatient (CLI) | payer MEDICARE, OTHER ==
[~2018-09-28 12:56] MED LIST changes: +KLONOPIN0.5 MG ORAL
[2018-09-28 13:00] VITALS: BP 112/66
--- NOTE | 2018-09-28 14:10 | GI Progress Note ---
Assessment/Plan Problems: (1) N&V (nausea and vomiting) ICD Codes: R11.2 - Nausea with vomiting, unspecified SNOMED: 30505489 (2) Ulcerative esophagitis ICD Codes: K22.10 - Ulcer of esophagus without bleeding SNOMED: 706558134 (3) H. pylori infection ICD Codes: A04.8 - Other specified bacterial intestinal infections SNOMED: 818872891 (4) GERD (gastroesophageal reflux disease) ICD Codes: K21.9 - Gastro-esophageal reflux disease without esophagitis SNOMED: 195326354 (5) Diarrhea ICD Codes: R19.7 - Diarrhea, unspecified SNOMED: 06465845 Status: stable Status Narrative Seen with Dr. Temple. Assessment/Plan SUMMARY FINDINGS reviewed with patient: 1. No evidence of esophagitis. 2. Hiatal hernia. 3. Gastritis, status post biopsy. >> positive for H. Pylori s/p H. Pylori with failed treatment RECOMMENDATIONS: Bismuth Quadruple Therapy RTC x 3 months for BT The patient was seen and examined at bedside and all new and available data was reviewed in the patients chart. I agree with the above findings, impression and plan. (Patient seen earlier today. Signature stamp does not reflect patient encounter time.). - Tanner Temple MD Subjective Subjective continue to has severe abdominal pain Objective T 98.3 BP 112/66 P 80 100 RA General Appearance: WD/WN, no apparent distress, alert Cardiovascular: normal rate Respiratory/Chest: normal breath sounds, no respiratory distress Abdominal Exam: normal bowel sounds, non tender, soft Extremities: normal range of motion, non-tender Frantz Corona NP Sep 28, 2018 14:10
== END 2018-09-28 13:26 | disposition home or self-care (01) ==
LOC: PAN 12:56
DX: R11.2 Nausea with vomiting, unspecified (principal); K22.10 Ulcer of esophagus without bleeding; A04.8 Other specified bacterial intestinal infections; K21.9 Gastro-esophageal reflux disease without esophagitis; R19.7 Diarrhea, unspecified; K44.9 Diaphragmatic hernia without obstruction or gangrene; K29.60 Other gastritis without bleeding
CPT/HCPCS: 99212

== ENCOUNTER 2018-10-20 09:11 | Outpatient (CLI) | payer MEDICARE, OTHER ==
[2018-10-20 09:39] VITALS: BP 105/65
--- NOTE | 2018-10-20 10:17 | GI Progress Note ---
Assessment/Plan Problems: (1) N&V (nausea and vomiting) ICD Codes: R11.2 - Nausea with vomiting, unspecified SNOMED: 77883767 (2) H. pylori infection ICD Codes: A04.8 - Other specified bacterial intestinal infections SNOMED: 630157718 (3) GERD (gastroesophageal reflux disease) ICD Codes: K21.9 - Gastro-esophageal reflux disease without esophagitis SNOMED: 316651309 (4) Diarrhea ICD Codes: R19.7 - Diarrhea, unspecified SNOMED: 17973577 (5) Hiatal hernia ICD Codes: K44.9 - Diaphragmatic hernia without obstruction or gangrene SNOMED: 71481280 Status: stable Status Narrative Seen with Dr. Temple. Assessment/Plan Carafate Ordered urine analysis Ordered urine culture Return to clinic times 2 months for repeat breath test The patient was seen and examined at bedside and all new and available data was reviewed in the patients chart. I agree with the above findings, impression and plan. (Patient seen earlier today. Signature stamp does not reflect patient encounter time.). - Tanner Temple MD Subjective Subjective Patient completed only 10 days of her quadruple therapy treatment for H. pylori The patient had an episode of hematuria, went to the emergency department and was prescribed Keflex times 2 weeks for UTI, her hematuria has resolved. She is still taking her PPI daily Objective Last 24 Hour Vital Signs Date Time Temp Pulse Resp B/P (MAP) Pulse Ox O2 Delivery O2 Flow Rate FiO2 10/20/18 09:39 98.0 66 105/65 99 General Appearance: WD/WN, no apparent distress, alert Cardiovascular: normal rate Respiratory/Chest: normal breath sounds, no respiratory distress Abdominal Exam: normal bowel sounds, non tender, soft Extremities: normal range of motion, non-tender Frantz Corona REPLANTER Oct 20, 2018 10:17
[2018-10-20 12:59] LABS: APPEARANCE,URINE CLEAR; BILIRUBIN, URINE NEGATIVE (NEGATIVE); COLOR,URINE PALE YELLOW; GLUCOSE, URINE (UA) NEGATIVE (NEGATIVE); KETONES,URINE NEGATIVE (NEGATIVE); LEUKOCYTE ESTERASE ,URINE 1+ (NEGATIVE); NITRITE,URINE NEGATIVE (NEGATIVE); PH,URINE 6 (4.5-8.0); PROTEIN,URINE NEGATIVE (NEGATIVE); UROBILINOGEN,URINE NORMAL MG/DL (0.0-1.0)
== END 2018-10-20 09:41 | disposition home or self-care (01) ==
LOC: PAN 09:11
DX: R11.2 Nausea with vomiting, unspecified (principal); A04.8 Other specified bacterial intestinal infections; K21.9 Gastro-esophageal reflux disease without esophagitis; R19.7 Diarrhea, unspecified; K44.9 Diaphragmatic hernia without obstruction or gangrene
CPT/HCPCS: 81003; 87086; G0463; 99212

== ENCOUNTER 2018-12-22 10:13 | Outpatient (CLI) | payer MEDICARE, OTHER ==
--- NOTE | 2018-12-22 10:51 | General Progress Note ---
Assessment/Plan Problem List: (1) H. pylori infection ICD Codes: A04.8 - Other specified bacterial intestinal infections SNOMED: 942693352 (2) GERD (gastroesophageal reflux disease) ICD Codes: K21.9 - Gastro-esophageal reflux disease without esophagitis SNOMED: 519249547 (3) Diarrhea ICD Codes: R19.7 - Diarrhea, unspecified SNOMED: 38246200 (4) Hiatal hernia ICD Codes: K44.9 - Diaphragmatic hernia without obstruction or gangrene SNOMED: 36549537 (5) N&V (nausea and vomiting) ICD Codes: R11.2 - Nausea with vomiting, unspecified SNOMED: 78783464 (6) Ulcerative esophagitis ICD Codes: K22.10 - Ulcer of esophagus without bleeding SNOMED: 603067994 (7) Depression ICD Codes: F32.9 - Major depressive disorder, single episode, unspecified SNOMED: 13350018 (8) Diabetes ICD Codes: E11.9 - Type 2 diabetes mellitus without complications SNOMED: 16232532 Assessment/Plan patient was seen by for second opinion plan Colonoscopy for tomorrow MRCP ordered at [facility] to r/o CBD stones ] Subjective ROS Limited/Unobtainable: Yes Allergies: Coded Allergies: IODINE (Verified Allergy, Severe, hives, blisters, 01/12/18) POVIDONE-IODINE (Unverified Allergy, Severe, hives, blisters, 01/12/18) SOAP (Verified Allergy, Severe, hives, blisters, 01/12/18) ASPIRIN (Verified Allergy, Intermediate, hives, 01/12/18) CODEINE (Verified Allergy, Intermediate, hives, 01/12/18) Objective General Appearance: alert EENT: normal ENT inspection Neck: supple Cardiovascular: normal rate Respiratory/Chest: lungs clear Abdomen: soft, hypoactive bowel sounds, tender Extremities: non-tender Tanner Temple MD Dec 22, 2018 10:51
[2018-12-22 12:26] VITALS: BP 122/66
[2018-12-22] MEDS ORDERED: NORCO 5-325 TA1 EACH ORAL (12:26)
[2018-12-22] MEDS ORDERED: ZOFRAN4 M3 ORAL (12:26)
[2018-12-23] MEDS ORDERED: OMEPRAZOLE40 M1 ORAL (08:18)
[2018-12-23] MEDS ORDERED: LEVSIN-SL0.125 MG SL (08:18)
[2018-12-23] MEDS ORDERED: SUMATRIPTAN SU100 MG PO (08:18)
== END 2018-12-22 12:13 | disposition home or self-care (01) ==
LOC: PAN 10:13
DX: K21.9 Gastro-esophageal reflux disease without esophagitis (principal); A04.8 Other specified bacterial intestinal infections; R19.7 Diarrhea, unspecified; K44.9 Diaphragmatic hernia without obstruction or gangrene; R11.2 Nausea with vomiting, unspecified; K22.10 Ulcer of esophagus without bleeding; F32.9 Major depressive disorder, single episode, unspecified; E11.9 Type 2 diabetes mellitus without complications; Z88.6 Allergy status to analgesic agent
CPT/HCPCS: 83013; G0463

== ENCOUNTER 2019-01-12 10:07 | Outpatient (CLI) | payer MEDICARE ==
[~2019-01-12 10:07] MED LIST changes: +LEVSIN-SL0.125 MG SL; +NORCO 5-325 TA1 EACH ORAL; +OMEPRAZOLE40 M1 ORAL
[2019-01-12 10:24] VITALS: BP 115/67
--- NOTE | 2019-01-12 11:03 | General Progress Note ---
Assessment/Plan Problem List: (1) N&V (nausea and vomiting) ICD Codes: R11.2 - Nausea with vomiting, unspecified SNOMED: 53977004 (2) Ulcerative esophagitis ICD Codes: K22.10 - Ulcer of esophagus without bleeding SNOMED: 840854197 (3) H. pylori infection ICD Codes: A04.8 - Other specified bacterial intestinal infections SNOMED: 807716927 (4) GERD (gastroesophageal reflux disease) ICD Codes: K21.9 - Gastro-esophageal reflux disease without esophagitis SNOMED: 899401349 (5) Diabetes ICD Codes: E11.9 - Type 2 diabetes mellitus without complications SNOMED: 01436415 (6) Diarrhea ICD Codes: R19.7 - Diarrhea, unspecified SNOMED: 62527602 (7) Depression ICD Codes: F32.9 - Major depressive disorder, single episode, unspecified SNOMED: 57308547 (8) Hiatal hernia ICD Codes: K44.9 - Diaphragmatic hernia without obstruction or gangrene SNOMED: 10370399 Assessment/Plan colonoscopy and MRI results reviewed with her added cholestyramine refered patient to fu with his pain management MD Subjective ROS Limited/Unobtainable: Yes Allergies: Coded Allergies: IODINE (Verified Allergy, Severe, hives, blisters, 01/12/18) POVIDONE-IODINE (Unverified Allergy, Severe, hives, blisters, 01/12/18) SOAP (Verified Allergy, Severe, hives, blisters, 01/12/18) ASPIRIN (Verified Allergy, Intermediate, hives, 01/12/18) CODEINE (Verified Allergy, Intermediate, hives, 01/12/18) Objective General Appearance: alert EENT: normal ENT inspection Neck: supple Cardiovascular: normal rate Respiratory/Chest: lungs clear Abdomen: soft, tender Extremities: non-tender Tanner Temple MD Jan 12, 2019 11:03
== END 2019-01-12 13:44 | disposition home or self-care (01) ==
LOC: PAN 10:07
DX: R11.2 Nausea with vomiting, unspecified (principal); K22.10 Ulcer of esophagus without bleeding; A04.8 Other specified bacterial intestinal infections; K21.9 Gastro-esophageal reflux disease without esophagitis; E11.9 Type 2 diabetes mellitus without complications; R19.7 Diarrhea, unspecified; F32.9 Major depressive disorder, single episode, unspecified; K44.9 Diaphragmatic hernia without obstruction or gangrene; Z88.6 Allergy status to analgesic agent
CPT/HCPCS: 99212

== ENCOUNTER 2019-06-01 09:55 | Outpatient (CLI) | payer MEDICARE ==
--- NOTE | 2019-06-01 11:11 | General Progress Note ---
Assessment/Plan Problem List: (1) N&V (nausea and vomiting) ICD Codes: R11.2 - Nausea with vomiting, unspecified SNOMED: 88074363 (2) Ulcerative esophagitis ICD Codes: K22.10 - Ulcer of esophagus without bleeding SNOMED: 464574763 (3) H. pylori infection ICD Codes: A04.8 - Other specified bacterial intestinal infections SNOMED: 672075981 (4) GERD (gastroesophageal reflux disease) ICD Codes: K21.9 - Gastro-esophageal reflux disease without esophagitis SNOMED: 781029396 (5) Diarrhea ICD Codes: R19.7 - Diarrhea, unspecified SNOMED: 20784666 (6) Diabetes ICD Codes: E11.9 - Type 2 diabetes mellitus without complications SNOMED: 11935269 (7) Depression ICD Codes: F32.9 - Major depressive disorder, single episode, unspecified SNOMED: 65399070 (8) Hiatal hernia ICD Codes: K44.9 - Diaphragmatic hernia without obstruction or gangrene SNOMED: 05630332 (9) Status post fall ICD Codes: Z91.81 - History of falling SNOMED: 236175207 Assessment/Plan: trial of lomotil and zofran TRC if no improvement in one week Subjective ROS Limited/Unobtainable: Yes Allergies: Coded Allergies: IODINE (Verified Allergy, Severe, hives, blisters, 01/12/18) POVIDONE-IODINE (Unverified Allergy, Severe, hives, blisters, 01/12/18) SOAP (Verified Allergy, Severe, hives, blisters, 01/12/18) ASPIRIN (Verified Allergy, Intermediate, hives, 01/12/18) CODEINE (Verified Allergy, Intermediate, hives, 01/12/18) Objective General Appearance: alert EENT: normal ENT inspection Neck: supple Cardiovascular: normal rate Respiratory/Chest: lungs clear Abdomen: soft, hypoactive bowel sounds, tender Extremities: non-tender Tanner Temple MD Jun 01, 2019 11:11
[2019-06-01] MEDS ORDERED: CHOLESTYRAMINE R5 GM MC (14:08)
[2019-06-01] MEDS ORDERED: OMEPRAZOLE40 M1 ORAL (14:08)
[2019-06-01 14:09] VITALS: BP 103/53
== END 2019-06-01 11:55 | disposition home or self-care (01) ==
LOC: PAN 09:55
DX: R11.2 Nausea with vomiting, unspecified (principal); K22.10 Ulcer of esophagus without bleeding; A04.8 Other specified bacterial intestinal infections; K21.9 Gastro-esophageal reflux disease without esophagitis; R19.7 Diarrhea, unspecified; E11.9 Type 2 diabetes mellitus without complications; F32.9 Major depressive disorder, single episode, unspecified; K44.9 Diaphragmatic hernia without obstruction or gangrene; Z91.81 History of falling; Z88.6 Allergy status to analgesic agent; Z91.041 Radiographic dye allergy status

== ENCOUNTER 2019-11-08 12:39 | Outpatient (CLI) | payer MEDICARE, OTHER ==
[~2019-11-08 12:39] MED LIST changes: +CHOLESTYRAMINE R5 GM MC
--- NOTE | 2019-11-08 15:06 | General Progress Note ---
Assessment/Plan Problem List: (1) Hiatal hernia ICD Codes: K44.9 - Diaphragmatic hernia without obstruction or gangrene SNOMED: 08383892 (2) Depression ICD Codes: F32.9 - Major depressive disorder, single episode, unspecified SNOMED: 00750610 (3) Diabetes ICD Codes: E11.9 - Type 2 diabetes mellitus without complications SNOMED: 01668593 (4) Diarrhea ICD Codes: R19.7 - Diarrhea, unspecified SNOMED: 58062696 (5) GERD (gastroesophageal reflux disease) ICD Codes: K21.9 - Gastro-esophageal reflux disease without esophagitis SNOMED: 047921308 (6) H. pylori infection ICD Codes: A04.8 - Other specified bacterial intestinal infections SNOMED: 044282942 (7) Ulcerative esophagitis ICD Codes: K22.10 - Ulcer of esophagus without bleeding SNOMED: 255066548 (8) N&V (nausea and vomiting) ICD Codes: R11.2 - Nausea with vomiting, unspecified SNOMED: 83864442 (9) Status post fall ICD Codes: Z91.81 - History of falling SNOMED: 953101780 Assessment/Plan: ppi carafate plan EGd on Subjective ROS Limited/Unobtainable: Yes Allergies: Coded Allergies: IODINE (Verified Allergy, Severe, hives, blisters, 01/12/18) POVIDONE-IODINE (Unverified Allergy, Severe, hives, blisters, 01/12/18) SOAP (Verified Allergy, Severe, hives, blisters, 01/12/18) ASPIRIN (Verified Allergy, Intermediate, hives, 01/12/18) CODEINE (Verified Allergy, Intermediate, hives, 01/12/18) Objective General Appearance: alert EENT: normal ENT inspection Neck: supple Cardiovascular: normal rate Respiratory/Chest: decreased breath sounds Abdomen: normal bowel sounds, non tender, soft Extremities: non-tender Tanner Temple MD Nov 08, 2019 15:06
== END 2019-11-08 14:39 | disposition home or self-care (01) ==
LOC: PAN 12:39
DX: K44.9 Diaphragmatic hernia without obstruction or gangrene (principal); F32.9 Major depressive disorder, single episode, unspecified; E11.9 Type 2 diabetes mellitus without complications; R19.7 Diarrhea, unspecified; K21.9 Gastro-esophageal reflux disease without esophagitis; A04.8 Other specified bacterial intestinal infections; K22.10 Ulcer of esophagus without bleeding; R11.2 Nausea with vomiting, unspecified; Z91.81 History of falling
CPT/HCPCS: 99212

== ENCOUNTER 2019-11-10 08:55 | Day surgery (SDC) | payer MEDICARE, OTHER ==
[2019-11-10] VITALS (10 sets, daily range): BP systolic 104–123; BP diastolic 55–65
[~2019-11-10] VITALS: Ht 152.4 cm; Wt 63.5 kg
[~2019-11-10 08:55] MED LIST changes: +LR 1000ml 1,000 ML IVLG SCH
--- NOTE | 2019-11-10 10:52 | Pre-Procedure Note/Attestation ---
Pre-Procedure Note/Attestation Complete Prior to Procedure Planned Procedure: not applicable Procedure Narrative: egd Indications for Procedure Pre-Operative Diagnosis: abd pain Attestation I attest that I discussed the nature of the procedure; its benefits; risks and complications; and alternatives (and the risks and benefits of such alternatives ), prior to the procedure, with the patient (or the patient's legal customer development representative). I attest that, if there was a reasonable possibility of needing a blood transfusion, the patient (or the patient's legal customer development representative) was given the [facility] standardized written summary, pursuant to the Ramez Briana Blood Safety Act ([place] Health and Safety Code # 1645, as amended). I attest that I re-evaluated the patient just prior to the surgery and that there has been no change in the patient's H&P, except as documented below: Tanner Temple MD Nov 10, 2019 10:52
--- NOTE | 2019-11-10 10:53 | Short Stay Surgery H&P ---
History of Present Illness History of Present Illness Chief Complaint abd pain HPI Kimmy Lin is a 34 year old female who was admitted on for Gerd, Abdominal Pain Patient History Allergies: Coded Allergies: IODINE (Verified Allergy, Severe, hives, blisters, 01/12/18) POVIDONE-IODINE (Unverified Allergy, Severe, hives, blisters, 01/12/18) PREDNISONE (Verified Allergy, Severe, SOB,SWELLS UP, 11/10/19) SOAP (Verified Allergy, Severe, hives, blisters, 01/12/18) ASPIRIN (Verified Allergy, Intermediate, hives, 01/12/18) CODEINE (Verified Allergy, Intermediate, hives, 01/12/18) PAST MEDICAL HISTORY: (1) Status post fall (2) Ulcerative esophagitis (3) Diarrhea (4) Diabetes (5) Depression (6) Hiatal hernia (7) GERD (gastroesophageal reflux disease) Medication History Scheduled Cholestyramine (Cholestyramine Resin), 5 GM MC TID, (Reported) Clonazepam* (Klonopin*), 0.5 MG ORAL BID, (Reported) Duloxetine Hcl* (Cymbalta*), 60 MG ORAL TID, (Reported) Omeprazole (Omeprazole), 40 MG ORAL DAILY, (Reported) Sumatriptan Succinate (Sumatriptan Succinate), 100 MG PO NEE, (Reported) Scheduled PRN Ondansetron* (Zofran*), 4 MG ORAL Q6H PRN for Nausea & Vomiting, (Reported) Discontinued Medications Hydrocodone Bit/Acetaminophen 5-325* (Raymond 5-325*), 1 TAB ORAL Q4H PRN for For Pain, (Reported) Discontinued Reason: Pt stopped taking med Hyoscyamine Sulfate* (Levsin-Sl*), 0.125 MG SL TID, (Reported) Discontinued Reason: Pt stopped taking med Review of Systems Cardiovascular: Reports: no symptoms Respiratory: Reports: no symptoms Skeletal: Reports: no symptoms Gastrointestinal: Reports: no symptoms Genitourinary: Reports: no symptoms Neurologic: Reports: no symptoms Physical Exam Vital Signs Last Vital Signs Date Time Temp Pulse Resp B/P (MAP) Pulse Ox O2 Delivery O2 Flow Rate FiO2 11/10/19 09:36 Room Air 11/10/19 09:30 97.0 56 20 114/65 100 Labs Laboratory Tests Test 11/10/19 09:10 Urine HCG, Qualitative Negative (NEGATIVE) Skin: normal HENT: normal Heart: normal Lungs: normal Abdomen: normal Extremities: normal Plan Plan of Care egd Attestation Are the patient's medical conditions optimized for surgery? Attestation Response: yes Tanner Temple MD Nov 10, 2019 10:53
[2019-11-10] MEDS ORDERED: Lidocaine 1% MPF 10mg/ml 5ml ONE (11:00)
[2019-11-10] MEDS ORDERED: Propofol 200mg/20ml IV ONE (11:00)
[2019-11-10] MEDS ORDERED: LR 1000ml ONE (11:00)
--- NOTE | 2019-11-10 11:06 | Endoscopy Procedure Note ---
Endoscopy Procedure Note General Indication for Procedure: abd pain Procedures Performed: EGD Operative Findings/Diagnosis: gastritis Specimen: yes Pt Tolerated Procedure Well: Yes Estimated Blood Loss: none Anesthesia Anesthesiologist: keisha Anesthesia: MAC Inserted Devices Implant(s) used?: No GI Core Measures 50 yrs or older w/o bx or poly: Not Applicable 10yrs. F/U recommended: Not Applicable Tanner Temple MD Nov 10, 2019 11:06
--- NOTE | 2019-11-10 11:30 | Anethesia Preoperative Eval ---
Anesthesia Pre-op PMH/ROS General Date of Evaluation: Nov 10, 2019 Time of Evaluation: 10:53 Anesthesiologist: shin ASA Score: ASA 2 Mallampati Score Class I : Soft palate, uvula, fauces, pillars visible Class II: Soft palate, uvula, fauces visible Class III: Soft palate, base of uvula visible Class IV: Only hard plate visible Mallampati Classification: Class I Surgeon: suzy Diagnosis: EGD Surgical Procedure: screening Anesthesia History: none Family History: no anesthesia problems Allergies: Coded Allergies: IODINE (Verified Allergy, Severe, hives, blisters, 01/12/18) POVIDONE-IODINE (Unverified Allergy, Severe, hives, blisters, 01/12/18) PREDNISONE (Verified Allergy, Severe, SOB,SWELLS UP, 11/10/19) SOAP (Verified Allergy, Severe, hives, blisters, 01/12/18) ASPIRIN (Verified Allergy, Intermediate, hives, 01/12/18) CODEINE (Verified Allergy, Intermediate, hives, 01/12/18) Medications: see eMAR Patient NPO?: Yes NPO Date: Nov 10, 2019 NPO Time: 00:01 Past Medical History Cardiovascular: Denies: HTN, CAD, [place], valve dz, arrhythmia, other Pulmonary: Reports: asthma; Denies: COPD, SAAD, other Gastrointestinal/Genitourinary: Denies: GERD, CRI, ESRD, other Neurologic/Psychiatric: Reports: depression/anxiety; Denies: dementia, CVA, TIA, other Endocrine: Denies: DM, hypothyroidism, steroids, other HEENT: Denies: cataract (L), cataract (R), glaucoma, [place] (L), [place] (R), other Hematology/Immune: Denies: anemia, DVT, bleeding disorder, other Musculoskeletal/Integumentary: Denies: OA, RA, DJD, DDD, edema, other PSxH Narrative: EGD Anesthesia Pre-op Phys. Exam Physician Exam Last Vital Signs Date Time Temp Pulse Resp B/P (MAP) Pulse Ox O2 Delivery O2 Flow Rate FiO2 11/10/19 11:20 60 15 114/61 98 Room Air 11/10/19 11:15 3 11/10/19 11:10 97.4 Constitutional: NAD Neurologic: CN 2-12 intact Cardiovascular: RRR Respiratory: CTA Gastrointestinal: S/NT/ND Airway Exam Mallampati Score: Class II MO: full ROM: full Dentures: no upper, no lower Anesthesia Pre-op A/P Labs Urine Test Test 11/10/19 09:10 Urine HCG, Qualitative Negative (NEGATIVE) Studies Pre-op Studies: EKG Risk Assessment & Plan Plan: Mac Status Change Before Surgery: No Pre-Antibiotics Drug: none Kathleen Wright CRNA Nov 10, 2019 11:30
--- NOTE | 2019-11-10 11:30 | Immediate Post-Op Evaluation ---
Immediate Post-Op Evalulation Immediate Post-Op Evalulation Procedure: EGD Date of Evaluation: Nov 10, 2019 Time of Evaluation: 11:15 IV Fluids: 500 Blood Pressure Systolic: 122 Blood Pressure Diastolic: 60 Pulse Rate: 70 Respiratory Rate: 14 O2 Sat by Pulse Oximetry: 99 Temperature (Fahrenheit): 97.4 Nausea: No Vomiting: No Complications none Patient Status: awake, reacts, patent Hydration Status: adequate Drug: none Kathleen Wright CRNA Nov 10, 2019 11:30
--- NOTE | 2019-11-10 15:45 | Procedure Note ---
DATE OF PROCEDURE: 11/10/2019 SURGEON: Tanner Temple M.D. PROCEDURE: Upper endoscopy with biopsy. ANESTHESIA: Per Kathleen PALMA. INSTRUMENT: Olympus adult flexible upper endoscope. INDICATION: Abdominal pain, nausea, and vomiting. REASON FOR PROCEDURE: The procedure, risks, benefits, and possible consequences, including hemorrhage, aspiration, perforation and infection, and alternative treatments, were explained to the patient/legal guardian by Dr. Tanner Temple and the patient/legal guardian understood and accepted these risks. PROCEDURE IN DETAIL: After informed consent was obtained and the patient was adequately sedated, Olympus upper endoscope was advanced from the mouth to the second portion of the duodenum and retroflexion was performed in the stomach. The patient has evidence of prior history of sleeve gastrectomy. GE junction is at about 32 cm from the incisors. There are some few small ulcerations at the GE junction suggestive of mild esophagitis. In the stomach, there was diffuse gastritis. Random biopsy from the antrum and body was obtained to rule out H. pylori infection. At this time, the upper endoscope was retrieved and procedure was terminated. SUMMARY OF FINDINGS: 1. History of sleeve gastrectomy. 2. Few ulceration at the GE junction suggestive of mild esophagitis. 3. Gastritis, status post biopsy. RECOMMENDATIONS: 1. Reflux measures. 2. Follow biopsy results and treat accordingly. 3. Continue on PPI daily. Tanner Temple M.D. DR: INGRID JOB#: [id number] CC:
--- NOTE | 2019-11-10 16:44 | 48 Hour Post Anesthesia Eval ---
Post Anesthesia Evaluation Procedure: EGD Date of Evaluation: Nov 10, 2019 Time of Evaluation: 16:44 Blood Pressure Systolic: 120 0: 58 Pulse Rate: 54 Respiratory Rate: 14 O2 Sat by Pulse Oximetry: 98 Airway: patent Nausea: No Vomiting: No Hydration Status: adequate Cardiopulmonary Status: stable Mental Status/LOC: patient returned to baseline Post-Anesthesia Complications: none Follow-up care needed: N/A Kathleen Wright CRNA Nov 10, 2019 16:44
== END 2019-11-10 12:30 | disposition home or self-care (01) ==
LOC: GAS 08:55
DX: R10.9 Unspecified abdominal pain (principal); R11.2 Nausea with vomiting, unspecified; Z98.84 Bariatric surgery status; K25.9 Gastric ulcer, unspecified as acute or chronic, without hemorrhage or perforation; E11.9 Type 2 diabetes mellitus without complications; F32.9 Major depressive disorder, single episode, unspecified; K21.9 Gastro-esophageal reflux disease without esophagitis; Z88.6 Allergy status to analgesic agent; Z91.041 Radiographic dye allergy status; K29.50 Unspecified chronic gastritis without bleeding
CPT/HCPCS: 43239; 81025; 82962; J2704; J7120; 94003; 94150

== ENCOUNTER 2020-10-09 13:28 | Outpatient (CLI) | payer MEDICARE, OTHER ==
[~2020-10-09 13:28] MED LIST changes: -LR 1000ml 1,000 ML IVLG SCH; +PANTOPRAZOLE SO40 MG ORAL
[2020-10-09 13:44] VITALS: BP 139/85
[2020-10-09] MEDS ORDERED: TOPIRAMATE25 MG ORAL (13:55)
[2020-10-09] MEDS ORDERED: SYMBICORT 16010.2 G1 IH (13:55)
[2020-10-09] MEDS ORDERED: GABAPENTIN400 MG ORAL (13:55)
[2020-10-09] MEDS ORDERED: CYCLOBENZAPRINE5 MG ORAL (13:55)
[2020-10-09] MEDS ORDERED: FOSAMAX70 MG ORAL (13:55)
--- NOTE | 2020-10-10 10:30 | General Progress Note ---
Subjective ROS Limited/Unobtainable: Yes Allergies: Coded Allergies: IODINE (Verified Allergy, Severe, hives, blisters, 01/12/18) POVIDONE-IODINE (Unverified Allergy, Severe, hives, blisters, 01/12/18) PREDNISONE (Verified Allergy, Severe, SOB,SWELLS UP, 11/10/19) SOAP (Verified Allergy, Severe, hives, blisters, 01/12/18) ASPIRIN (Verified Allergy, Intermediate, hives, 01/12/18) CODEINE (Verified Allergy, Intermediate, hives, 01/12/18) Objective Last 24 Hour Vital Signs Date Time Temp Pulse Resp B/P (MAP) Pulse Ox O2 Delivery O2 Flow Rate FiO2 10/09/20 13:44 98.8 75 16 139/85 97 General Appearance: alert EENT: normal ENT inspection Neck: supple Cardiovascular: normal rate Respiratory/Chest: lungs clear Abdomen: hypoactive bowel sounds, tender Extremities: non-tender Assessment/Plan Assessment/Plan: Assessment/Plan Problem List: (1) Hiatal hernia ICD Codes: K44.9 - Diaphragmatic hernia without obstruction or gangrene SNOMED: 08069473 (2) Depression ICD Codes: F32.9 - Major depressive disorder, single episode, unspecified SNOMED: 01109290 (3) Diabetes ICD Codes: E11.9 - Type 2 diabetes mellitus without complications SNOMED: 02964484 (4) Diarrhea ICD Codes: R19.7 - Diarrhea, unspecified SNOMED: 13641393 (5) GERD (gastroesophageal reflux disease) ICD Codes: K21.9 - Gastro-esophageal reflux disease without esophagitis SNOMED: 724092496 (6) H. pylori infection ICD Codes: A04.8 - Other specified bacterial intestinal infections SNOMED: 900733104 (7) Ulcerative esophagitis ICD Codes: K22.10 - Ulcer of esophagus without bleeding SNOMED: 854555336 (8) N&V (nausea and vomiting) ICD Codes: R11.2 - Nausea with vomiting, unspecified SNOMED: 21369729 (9) Status post fall ICD Codes: Z91.81 - History of falling SNOMED: 692816657 Assessment/Plan: trial of Xifaxan and bentyl RTC prn Tanner Temple MD Oct 10, 2020 10:30
== END 2020-10-09 15:28 | disposition home or self-care (01) ==
LOC: PAN 13:28
DX: K44.9 Diaphragmatic hernia without obstruction or gangrene (principal); F32.9 Major depressive disorder, single episode, unspecified; E11.9 Type 2 diabetes mellitus without complications; R19.7 Diarrhea, unspecified; K21.9 Gastro-esophageal reflux disease without esophagitis; A04.8 Other specified bacterial intestinal infections; K22.10 Ulcer of esophagus without bleeding; R11.2 Nausea with vomiting, unspecified; Z91.81 History of falling; Z88.6 Allergy status to analgesic agent; Z91.041 Radiographic dye allergy status; Z88.8 Allergy status to other drugs, medicaments and biological substances
CPT/HCPCS: 99212